=== PATIENT | male | born 1975 | race Caucasian/White ===

== ENCOUNTER 2019-07-11 19:57 | Emergency (ER) | payer OTHER ==
[2019-07-11] MEDS ORDERED: Ketorolac Tromethamine 30 MG/ML VIAL ONE (20:31)
== END 2019-07-11 20:57 | disposition home or self-care (01) ==
LOC: SCSER 19:57
DX: K02.9 Dental caries, unspecified (principal); I10 Essential (primary) hypertension; F43.10 Post-traumatic stress disorder, unspecified; Z79.82 Long term (current) use of aspirin; Z79.899 Other long term (current) drug therapy
CPT/HCPCS: 96372; 99282; J1885

== ENCOUNTER 2023-06-03 10:12 | Outpatient (CLI) | payer OTHER | END 2023-06-03 10:13 | disposition home or self-care (01) | LOC: SCSRAD 10:12 | PROVIDERS: ATTEND Nurse Practitioner Family | DX: S29.9XXA Unspecified injury of thorax, initial encounter (principal) | CPT/HCPCS: 71046 ==